=== PATIENT | male | born 1975 | race Two or more races ===

== ENCOUNTER 2019-04-10 19:28 | Emergency (ER) | payer OTHER ==
[~2019-04-10] VITALS: Ht 172.7 cm; Wt 95.3 kg
[~2019-04-10 19:28] MED LIST: LEVSIN0.125 MG PO; NO SABE NOMBRE; PEPCID20 MG PO
[2019-04-11] MEDS ORDERED: KEFLEX500 MG PO (02:15)
[2019-04-11] MEDS ORDERED: KETO10TA2 PO (02:15)
== END 2019-04-11 02:16 ==
LOC: ER 19:28
DX: S67.194A Crushing injury of right ring finger, initial encounter (principal); S61.224A Laceration with foreign body of right ring finger without damage to nail, initial encounter; W23.0XXA Caught, crushed, jammed, or pinched between moving objects, initial encounter; Y93.89 Activity, other specified; Y92.89 Other specified places as the place of occurrence of the external cause; Y99.8 Other external cause status

== ENCOUNTER 2019-05-12 02:30 | Emergency (ER) | payer OTHER ==
[~2019-05-12] VITALS: Ht 172.7 cm; Wt 95.3 kg
[~2019-05-12 02:30] MED LIST changes: +KEFLEX500 MG PO; +KETO10TA2 PO
[2019-05-12] MEDS ORDERED: MAXITROL EYE DRO5 ML OP (04:02)
[2019-05-12] MEDS ORDERED: CLARITIN10 MG PO (04:03)
== END 2019-05-12 04:16 | disposition home or self-care (01) ==
LOC: ER 02:30
DX: H10.11 Acute atopic conjunctivitis, right eye (principal)

== ENCOUNTER 2020-10-02 10:37 | Emergency (ER) | payer OTHER ==
[~2020-10-02] VITALS: Ht 172.7 cm; Wt 85.3 kg
[~2020-10-02 10:37] MED LIST changes: +CLARITIN10 MG PO; +MAXITROL EYE DRO5 ML OP
[2020-10-02] MEDS ORDERED: KETO10TA2 PO (15:25)
[2020-10-02] MEDS ORDERED: ORPHENADRINE C100 MG PO (15:25)
== END 2020-10-02 17:59 ==
LOC: ER 10:37
DX: S73.191A Other sprain of right hip, initial encounter (principal); X50.0XXA Overexertion from strenuous movement or load, initial encounter; Y93.89 Activity, other specified; Y92.018 Other place in single-family (private) house as the place of occurrence of the external cause; Y99.8 Other external cause status

== ENCOUNTER 2021-11-27 00:22 | Emergency (ER) | payer OTHER ==
[~2021-11-27] VITALS: Ht 167.6 cm; Wt 79.8 kg
[~2021-11-27 00:22] MED LIST changes: +ORPHENADRINE C100 MG PO
[2021-11-27] MEDS ORDERED: DICLOFENAC POTA50 MG PO (05:30)
[2021-11-27] MEDS ORDERED: DUI500 PO (05:30)
== END 2021-11-27 05:55 | disposition home or self-care (01) ==
LOC: ER 00:22
DX: N30.90 Cystitis, unspecified without hematuria (principal); R10.2 Pelvic and perineal pain

== ENCOUNTER 2022-10-01 05:00 | Emergency (ER) | payer OTHER ==
[~2022-10-01] VITALS: Ht 167.6 cm; Wt 90.7 kg
[~2022-10-01 05:00] MED LIST changes: +ACETAMINOPHEN650 M2; +DICLOFENAC POTA50 MG PO; +DUI500 PO
== END 2022-10-01 11:11 | disposition home or self-care (01) ==
LOC: ER 05:00
DX: S39.013A Strain of muscle, fascia and tendon of pelvis, initial encounter (principal); X58.XXXA Exposure to other specified factors, initial encounter; Y93.9 Activity, unspecified; Y92.9 Unspecified place or not applicable; Y99.9 Unspecified external cause status

== ENCOUNTER 2023-10-17 05:25 | Day surgery (SDC) | payer OTHER ==
[2023-10-09 11:05] LABS: URINE APPEARANCE Clear; URINE BILIRRUBIN Negative (NEGATIVE); URINE BLOOD Negative; URINE COLOR Yellow; URINE GLUCOSE Negative (NEGATIVE); URINE KETONE Negative (NEGATIVE); URINE LEUKOCYTE Negative; URINE NITRATE Negative; URINE PROTEIN Negative (NEGATIVE); URINE UROBILINOGEN 0.2 E.U./dl
[2023-10-09 11:08] LABS: URINE WBC 2.1 uL (0.0-23.2)
[2023-10-09 11:08] LABS: HEMOGLOBIN 14.5 g/dL (13-16.00); MEAN CELL VOLUME 90.7 fL (80.0-100.00); MEAN CORPUSCULAR HEMOGLOBIN 30.5 pg (27.00-32.0); MEAN CORPUSCULAR HGB CONC 33.7 g/dl (32.0-36.0); PLATELET COUNT 183 K/uL (150-450); RED BLOOD COUNT 4.74 M/uL (4.00-6.00); RED CELL DISTRIBUTION WIDTH 13.1 % (11.5-14.5)
[2023-10-09 11:13] LABS: URINE EPITHELIAL CELLS 0.6 uL (0.0-38.8); URINE RBC 1.3 uL (0.0-20.8)
[2023-10-09 11:59] LABS: ALBUMIN 3.9 gm/dL (3.4-5.0); BILIRUBIN TOTAL 0.44 mg/dL (0.3-1.2); CALCIUM 9.4 mg/dL (8.5-10.1); CREATININE SERUM 0.9 mg/dL (0.70-1.30); GFR 89.32; GLOBULINA 3.3 G/DL (2.4-3.5); POTASSIUM 5.22 mEq/L (3.5-5.1); TOTAL PROTEIN 7.2 gm/dL (6.4-8.2)
[2023-10-09 12:06] LABS: INR 0.95; PARTIAL THROMBOPLASTIN TIME 27.6 SECONDS (22.0-34.0); PROTHROMBIN TIME 9.6 SECONDS (9.0-11.5)
[2023-10-17] MEDS ORDERED: CEFAZOLIN SODIUM 1,000 MG VIAL ONE ×2 (06:51→11:05)
[2023-10-17] MEDS ORDERED: CEFAZOLIN SODIUM 1,000 MG VIAL IV SCH (10:00)
[2023-10-17] MEDS ORDERED: FAMOTIDINE/PF 20 MG/10 ML SYRINGE IV SCH (10:00)
[2023-10-17] MEDS ORDERED: FAMOTIDINE/PF 20 MG/2 ML VIAL ONE (11:06)
== END 2023-10-17 12:35 | disposition home or self-care (01) ==
LOC: CIR.AMB 05:25
PROVIDERS: ATTEND Specialist
DX: K40.90 Unilateral inguinal hernia, without obstruction or gangrene, not specified as recurrent (principal)

== ENCOUNTER 2024-05-14 13:23 | Outpatient (CLI) | payer OTHER | END 2024-05-14 13:50 | disposition home or self-care (01) | LOC: MRI 13:23 | DX: M25.511 Pain in right shoulder (principal); M79.621 Pain in right upper arm; R52 Pain, unspecified | CPT/HCPCS: 73221 ==